=== PATIENT | female | born 1950 | race Caucasian/White ===

== ENCOUNTER 2018-11-17 21:14 | Emergency (ER) | payer OTHER ==
[~2018-11-17] VITALS: Ht 162.6 cm; Wt 92.5 kg
[2018-11-17] MEDS ORDERED: JANUMET 50-5001 EACH (21:27)
[2018-11-17] MEDS ORDERED: ALDACTONE25 MG (21:27)
[2018-11-17] MEDS ORDERED: LASIX40 MG (21:27)
[2018-11-17] MEDS ORDERED: DIGOX125 MCG (21:27)
[2018-11-17] MEDS ORDERED: VASOTEC10 MG (21:27)
[2018-11-17] MEDS ORDERED: COREG CR20 MG (21:27)
[2018-11-17] MEDS ORDERED: LANTUS SOL100 UNIT/1 (21:28)
== END 2018-11-18 18:45 | disposition home or self-care (01) ==
LOC: ER 21:14
DX: I87.2 Venous insufficiency (chronic) (peripheral) (principal); E86.0 Dehydration; E11.65 Type 2 diabetes mellitus with hyperglycemia; R60.0 Localized edema; M79.605 Pain in left leg; M79.604 Pain in right leg; M54.5 Low back pain; R53.1 Weakness; M48.07 Spinal stenosis, lumbosacral region; M47.897 Other spondylosis, lumbosacral region

== ENCOUNTER 2018-12-04 09:59 | Emergency (ER) | payer OTHER ==
[~2018-12-04] VITALS: Ht 162.6 cm; Wt 88.0 kg
[~2018-12-04 09:59] MED LIST: ALDACTONE25 MG; COREG CR20 MG; DIGOX125 MCG; JANUMET 50-5001 EACH; LANTUS SOL100 UNIT/1; LASIX40 MG; VASOTEC10 MG
== END 2018-12-04 20:26 | disposition home or self-care (01) ==
LOC: ER 09:59
DX: N28.89 Other specified disorders of kidney and ureter (principal); R53.1 Weakness

== ENCOUNTER 2021-07-28 18:56 | Inpatient (IN) | payer OTHER ==
[~2021-07-28] VITALS: Ht 162.6 cm; Wt 96.2 kg
[2021-07-29] MEDS ORDERED: CARVEDILOL25 M1 (13:28)
[2021-07-29] MEDS ORDERED: ALLOPURINOL100 MG (13:28)
[2021-08-05] MEDS ORDERED: HYDRALAZINE HCL50 MG PO (15:06)
[2021-08-05] MEDS ORDERED: CARVEDILOL25 MG PO (15:06)
[2021-08-05] MEDS ORDERED: ATACAND16 MG PO (15:06)
[2021-08-05] MEDS ORDERED: SPIRONOLACTONE25 MG PO (15:06)
[2021-08-05] MEDS ORDERED: GABAPENTIN300 MG PO (15:06)
[2021-08-05] MEDS ORDERED: CYMBALTA30 MG PO (15:06)
== END 2021-08-05 20:53 | disposition home or self-care (01) | DRG 291 ==
LOC: ER 18:56 → SEC-K 07-29 10:05 → MEDI 07-29 15:36
PROVIDERS: ADMIT Internal Medicine; ATTEND Internal Medicine
PROC: BW21ZZZ Computerized Tomography (CT Scan) of Abdomen and Pelvis (ICD-10-PCS; 2021-07-28)
PROC: 4A12X4Z Monitoring of Cardiac Electrical Activity, External Approach (ICD-10-PCS; principal; 2021-07-29)
PROC: BT4JZZZ Ultrasonography of Kidneys and Bladder (ICD-10-PCS; 2021-07-29)
PROC: BR29ZZZ Computerized Tomography (CT Scan) of Lumbar Spine (ICD-10-PCS; 2021-07-29)
PROC: BR27ZZZ Computerized Tomography (CT Scan) of Thoracic Spine (ICD-10-PCS; 2021-07-29)
PROC: BB24ZZZ Computerized Tomography (CT Scan) of Bilateral Lungs (ICD-10-PCS; 2021-07-29)
PROC: B246ZZZ Ultrasonography of Right and Left Heart (ICD-10-PCS; 2021-07-29)
DX: I13.0 Hypertensive heart and chronic kidney disease with heart failure and stage 1 through stage 4 chronic kidney disease, or unspecified chronic kidney disease (principal); I50.31 Acute diastolic (congestive) heart failure; R65.10 Systemic inflammatory response syndrome (SIRS) of non-infectious origin without acute organ dysfunction; N39.0 Urinary tract infection, site not specified; B96.20 Unspecified Escherichia coli [E. coli] as the cause of diseases classified elsewhere; N18.9 Chronic kidney disease, unspecified; E11.22 Type 2 diabetes mellitus with diabetic chronic kidney disease; E86.0 Dehydration; E87.5 Hyperkalemia; R53.81 Other malaise; M51.15 Intervertebral disc disorders with radiculopathy, thoracolumbar region; E11.40 Type 2 diabetes mellitus with diabetic neuropathy, unspecified; M48.061 Spinal stenosis, lumbar region without neurogenic claudication; E66.9 Obesity, unspecified; N28.89 Other specified disorders of kidney and ureter; Z79.4 Long term (current) use of insulin; Z20.822 Contact with and (suspected) exposure to COVID-19; Z95.810 Presence of automatic (implantable) cardiac defibrillator

== ENCOUNTER 2023-02-13 16:59 | Emergency (ER) | payer OTHER ==
[~2023-02-13] VITALS: Ht 162.6 cm; Wt 93.9 kg
[~2023-02-13 16:59] MED LIST changes: +ALLOPURINOL100 MG; +ATACAND16 MG PO; +CARVEDILOL25 M1; +CARVEDILOL25 MG PO; +CYMBALTA30 MG PO; +GABAPENTIN300 MG PO; +HYDRALAZINE HCL50 MG PO; +SPIRONOLACTONE25 MG PO
== END 2023-02-13 20:09 | disposition home or self-care (01) ==
LOC: ER 16:59
PROVIDERS: General Practice
DX: R91.1 Solitary pulmonary nodule (principal); E11.9 Type 2 diabetes mellitus without complications; Z79.4 Long term (current) use of insulin; I10 Essential (primary) hypertension; Z91.013 Allergy to seafood; Z20.822 Contact with and (suspected) exposure to COVID-19